=== PATIENT | male | born 1945 | race African-American/Black ===

== ENCOUNTER → 2017-03-05 | Outpatient (CLI) | payer OTHER ==
[2015-12-09 15:01] VITALS: BP 123/67
[~2017-03-05] MED LIST: ACET500T68 PO; ALLO100T PO; AMLO5TAB2 PO; ASPI-630 PO; CALC600T4 PO; COLC0.6T42 PO; FERR-36 PO; HYDR-2762 PO; LISI-334 PO; WARF3TAB54 PO
--- NOTE | 2017-03-05 13:39 | EKG ---
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
--- NOTE | 2017-03-05 14:49 | RAD ---
Indication: Right hip surgery. Technique: Two-view chest radiograph was obtained and compared to a study from November 23, 2015. Findings: The lungs are clear. There is no pleural effusion. The heart is not enlarged. There is no heart failure. 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 There are degenerative changes in the spine. 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
== END | disposition home or self-care (01) ==
LOC: SURGPAT 12:57
PROVIDERS: ATTEND Orthopaedic Surgery
DX: M16.11 Unilateral primary osteoarthritis, right hip (principal); Z96.641 Presence of right artificial hip joint
CPT/HCPCS: 71020; 87641; 93005

== ENCOUNTER → 2017-10-26 | Outpatient (CLI) | payer OTHER | END | disposition home or self-care (01) | LOC: KCIC DEXA 08:33 | DX: C61 Malignant neoplasm of prostate (principal); M81.0 Age-related osteoporosis without current pathological fracture | CPT/HCPCS: 77080 ==

== ENCOUNTER 2018-02-27 07:56 | Emergency (ER) | payer OTHER ==
[~2018-02-27] VITALS: Ht 176.5 cm; Wt 99.8 kg
[~2018-02-27 07:56] MED LIST changes: -AMLO5TAB2 PO; +AMLO5TAB7 PO; +WARF-78 PO
[2018-02-27] MEDS ORDERED: MECLIZINE HCL 12.5 MG TABLET. PO ONE (08:15)
--- NOTE | 2018-02-27 08:23 | EKG ---
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
--- NOTE | 2018-02-27 08:30 | PHYS DOC ---
Adult General Chief Complaint Chief Complaint: DIZZY/LIGHT HEADED HPI HPI Patient is a 72 year old M who presents with room spinning dizziness for the last 2 days. Patient reports his symptoms are manageable while sitting or standing. He reports when he lays down, his dizziness is unbearable. He reports dry heaves when it is at it's worst. He denies headache or chest pain. No hx of similar. Review of Systems Review of Systems Constitutional: Denies fever or chills [] Eyes: Denies change in visual acuity HENT: Denies nasal congestion or sore throat [] Respiratory: Denies cough or shortness of breath [] Cardiovascular: Denies chest pain or sob. GI: Denies abdominal pain. Reports vomiting and nausea when dizziness is at worst. Integument: Denies rash or skin lesions [] Neurologic: Denies headache, focal weakness. Reports room spinning dizziness All other systems were reviewed and found to be within normal limits, except as documented in this note. Current Medications Current Medications Current Medications Medications (Trade) Dose Ordered Sig/Kenji Start Time Stop Time Status Last Admin Dose Admin Lorazepam (Ativan) 1 mg 1X ONCE 02/27/18 08:15 02/27/18 08:24 DC 02/27/18 08:39 1 MG Meclizine HCl (Antivert) 50 mg 1X ONCE 02/27/18 08:15 02/27/18 08:24 DC 02/27/18 08:41 50 MG Allergies Allergies Allergies Coded Allergies Type Severity Reaction Last Updated Verified No Known Drug Allergies 03/27/17 No Physical Exam Physical Exam Constitutional: Well developed, well nourished, no acute distress, non-toxic appearance. [] HENT: Normocephalic, atraumatic Eyes: PERRLA, EOMI, conjunctiva normal, no discharge. [] Neck: Normal range of motion, no tenderness, supple, no stridor. [] Cardiovascular:Heart rate regular rhythm, no murmur [] Lungs & Thorax: Bilateral breath sounds clear to auscultation [] Abdomen: Bowel sounds normal, soft, no tenderness Skin: Warm, dry, no erythema, no rash. [] Neurologic: Alert and oriented X 3, normal motor function, normal sensory function, no focal deficits noted. [] Psychologic: Affect normal, judgement normal, mood normal. [] Current Patient Data Vital Signs Vital Signs Date Time Temp Pulse Resp B/P (MAP) Pulse Ox O2 Delivery O2 Flow Rate FiO2 02/27/18 08:05 98.2 87 18 156/85 (108) 97 Room Air 98.2 Lab Values Laboratory Tests Test 02/27/18 08:35 White Blood Count 9.3 x10^3/uL (4.0-11.0) Red Blood Count 5.00 x10^6/uL (4.30-5.70) Hemoglobin 13.5 g/dL (13.0-17.5) Hematocrit 40.2 % (39.0-53.0) Mean Corpuscular Volume 81 fL (79-100) Mean Corpuscular Hemoglobin 27 pg (25-35) Mean Corpuscular Hemoglobin Concent 33 g/dL (31-37) Red Cell Distribution Width 16.3 % (11.5-14.5) H Platelet Count 264 x10^3/uL (140-400) Neutrophils (%) (Auto) 76 % (31-73) H Lymphocytes (%) (Auto) 15 % (24-48) L Monocytes (%) (Auto) 8 % (0-9) Eosinophils (%) (Auto) 1 % (0-3) Basophils (%) (Auto) 1 % (0-3) Neutrophils # (Auto) 7.0 x10^3uL (1.8-7.7) Lymphocytes # (Auto) 1.4 x10^3/uL (1.0-4.8) Monocytes # (Auto) 0.7 x10^3/uL (0.0-1.1) Eosinophils # (Auto) 0.1 x10^3/uL (0.0-0.7) Basophils # (Auto) 0.1 x10^3/uL (0.0-0.2) Sodium Level 141 mmol/L (136-145) Potassium Level 4.1 mmol/L (3.5-5.1) Chloride Level 103 mmol/L (98-107) Carbon Dioxide Level 25 mmol/L (21-32) Anion Gap 13 (6-14) Blood Urea Nitrogen 20 mg/dL (8-26) Creatinine 1.4 mg/dL (0.7-1.3) H Estimated GFR (Cockcroft-Gault) 60.1 BUN/Creatinine Ratio 14 (6-20) Glucose Level 133 mg/dL (70-99) H Calcium Level 9.9 mg/dL (8.5-10.1) Total Bilirubin 0.3 mg/dL (0.2-1.0) Aspartate Amino Transferase (AST) 13 U/L (15-37) L Alanine Aminotransferase (ALT) 19 U/L (16-63) Alkaline Phosphatase 75 U/L (46-116) Troponin I Quantitative < 0.017 ng/mL (0.000-0.055) Total Protein 8.2 g/dL (6.4-8.2) Albumin 4.0 g/dL (3.4-5.0) Albumin/Globulin Ratio 1.0 (1.0-1.7) Laboratory Tests 02/27/18 08:35 Laboratory Tests 02/27/18 08:35 EKG EKG NSR, rate 86, left axis, no stemi[] Radiology/Procedures Radiology/Procedures PATIENT: ANDRES PADILLA EACCOUNT: [id number]#: [id number] : 1945 LOCATION: ER AGE: 72 SEX: M EXAM STATUS: REG ER ORD. PHYSICIAN: JHONY FERRERA APRN REASON: dizziness PROCEDURE: CT HEAD WO CONTRAST PQRS Compliance Statement: One or more of the following individualized dose reduction techniques were utilized for this examination: 1. Automated exposure control 2. Adjustment of the mA and/or kV according to patient size 3. Use of iterative reconstruction technique CT HEAD WITHOUT CONTRAST History: DIZZY Comparison: None. Technique: Axial images are obtained of the head from the skull base through the vertex without IV contrast. Findings: No mass-effect, midline shift, extra-axial fluid collection, hemorrhage, or obvious acute infarction is identified. Basilar cisterns are patent. The ventricles and sulci are prominent, consistent with age-related cerebral atrophy. There is periventricular and subcortical white matter hypoattenuation. This is a nonspecific finding but is commonly due to chronic small vessel ischemic disease. Bone windows demonstrate no acute calvarial abnormality. The visualized paranasal sinuses are clear. Mastoid air cells are well aerated. IMPRESSION: 1. No acute intracranial abnormality. 2. Age-related cerebral atrophy and periventricular and subcortical white matter changes of chronic small vessel ischemic disease. Electronically signed by: John Ramirez MD (02/27/2018 8:58 AM) [id number] DICTATED and SIGNED BY: JOHN RAMIREZ MD DATE: 02/27/18 0855 [] Course & Med Decision Making Course & Med Decision Making Pertinent Labs and Imaging studies reviewed. (See chart for details) Patient is feeling much better after meds. He reports he was able to lay down for CT without dizziness. Plan: meclizine rx, valium rx, f/u with PCP, return precautions reviewed[] Dragon Disclaimer Dragon Disclaimer This electronic medical record was generated, in whole or in part, using a voice recognition dictation system. Departure Departure Impression: Primary Impression: Vertigo Disposition: 01 HOME, SELF-CARE Condition: IMPROVED Referrals: HARDY CEVALLOS MD (PCP) Patient Instructions: Vertigo Scripts Meclizine Hcl (MECLIZINE HCL) 25 Mg Tablet 1 TAB PO TID, #90 TAB po tid x3 days, then tid prn dizziness Prov: JHONY FERRERA ARMHOLE RAISER LOCKSTITCH 02/27/18 Diazepam (VALIUM) 2 Mg Tablet 2 MG PO QID PRN for breakthrough dizziness, #12 TAB Prov: JHONY FERRERA ARMHOLE RAISER LOCKSTITCH 02/27/18 JHONY FERRERA APRN Feb 27, 2018 08:30
--- NOTE | 2018-02-27 09:01 | RAD ---
PQRS Compliance Statement: One or more of the following individualized dose reduction techniques were utilized for this examination: 1. Automated exposure control 2. Adjustment of the mA and/or kV according to patient size 3. Use of iterative reconstruction technique CT HEAD WITHOUT CONTRAST History: DIZZY Comparison: None. Technique: Axial images are obtained of the head from the skull base through the vertex without IV contrast. Findings: No mass-effect, midline shift, extra-axial fluid collection, hemorrhage, or obvious acute infarction is identified. Basilar cisterns are patent. The ventricles and sulci are prominent, consistent with age-related cerebral atrophy. There is periventricular and subcortical white matter hypoattenuation. This is a nonspecific finding but is commonly due to chronic small vessel ischemic disease. Bone windows demonstrate no acute calvarial abnormality. The visualized paranasal sinuses are clear. Mastoid air cells are well aerated. IMPRESSION: 1. No acute intracranial abnormality. 2. Age-related cerebral atrophy and periventricular and subcortical white matter changes of chronic small vessel ischemic disease. Electronically signed by: John Ramirez MD (02/27/2018 8:58 AM) [id number]
[2018-02-27 09:06] LABS: BASO # 0.1 x10^3/uL (0.0-0.2); BASO % 1 % (0-3); EOS # 0.1 x10^3/uL (0.0-0.7); EOS % 1 % (0-3); HEMATOCRIT 40.2 % (39.0-53.0); HEMOGLOBIN 13.5 g/dL (13.0-17.5); LYMPH # 1.4 x10^3/uL (1.0-4.8); LYMPH % 15 % (24-48); MEAN CORPUSCULAR HEMOGLOBIN 27 pg (25-35); MEAN CORPUSCULAR HGB CONC 33 g/dL (31-37); MEAN CORPUSCULAR VOLUME 81 fL (79-100); MONO # 0.7 x10^3/uL (0.0-1.1); MONO % 8 % (0-9); NEUT % 76 % (31-73); PLATELET COUNT 264 x10^3/uL (140-400); RED CELL DISTRIBUTION WIDTH 16.3 % (11.5-14.5); WHITE BLOOD COUNT 9.3 x10^3/uL (4.0-11.0)
[2018-02-27 09:21] LABS: CALCIUM 9.9 mg/dL (8.5-10.1); CREATININE 1.4 mg/dL (0.7-1.3); GFR 60.1; POTASSIUM 4.1 mmol/L (3.5-5.1)
[2018-02-27 09:24] LABS: TOTAL BILIRUBIN 0.3 mg/dL (0.2-1.0); TOTAL PROTEIN 8.2 g/dL (6.4-8.2)
[2018-02-27] MEDS ORDERED: DIAZ2TAB PO (09:52)
[2018-02-27] MEDS ORDERED: MECL25TA3 PO (09:56)
[2018-02-27 10:00] VITALS: BP 147/88
== END 2018-02-27 10:30 | disposition home or self-care (01) ==
LOC: ER 07:56
DX: R42 Dizziness and giddiness (principal); R11.2 Nausea with vomiting, unspecified
CPT/HCPCS: 36415; 70450; 80053; 84484; 85025; 93005; 96374; 99285; J2060; J8597

== ENCOUNTER 2019-03-21 17:10 | Emergency (ER) | payer OTHER ==
[~2019-03-21] VITALS: Ht 175.3 cm; Wt 99.8 kg
[~2019-03-21 17:10] MED LIST changes: +AMLO5TAB10 PO; -AMLO5TAB7 PO; +DIAZ2TAB PO; -HYDR-2762 PO; +HYDR-2765 PO; +MECL25TA3 PO
[2019-03-21 17:15] VITALS: BP 200/96
--- NOTE | 2019-03-21 17:27 | PHYS DOC ---
Past Medical History Past Medical History: Hypertension, Other Additional Past Medical Histor: prostate ca Past Surgical History: Hip Replacement, Knee Replacement Additional Past Surgical Histo: R hip/knee, prostate removed, lumbar surgery Alcohol Use: Occasionally Drug Use: None Adult General Chief Complaint Chief Complaint: URINARY RETENTION [facility] HPI Patient is a 73 year old male who presents with urinary retention this been ongoing for 3 hours. The patient rates his pain as 10 out of 10 in severity. He states that he was just dribbling a little bit out of the time. He states he was having some bleeding earlier today. Patient has a history of prostate cancer. Review of Systems Review of Systems Constitutional: Denies fever or chills [] Eyes: Denies change in visual acuity, redness, or eye pain [] HENT: Denies nasal congestion or sore throat [] Respiratory: Denies cough or shortness of breath [] Cardiovascular: No additional information not addressed in HPI [] GI: Reports abdominal pain near his bladder Denies nausea, vomiting, bloody stools or diarrhea [] : Reports retention and blood. Musculoskeletal: Denies back pain or joint pain [] Integument: Denies rash or skin lesions [] Neurologic: Denies headache, focal weakness or sensory changes [] Endocrine: Denies polyuria or polydipsia [] Complete systems were reviewed and found to be within normal limits, except as documented in this note. Allergies Allergies Allergies Coded Allergies Type Severity Reaction Last Updated Verified No Known Drug Allergies 03/27/17 No Physical Exam Physical Exam Constitutional: Well developed, well nourished, no acute distress, non-toxic appearance. [] HENT: Normocephalic, atraumatic, bilateral external ears normal, oropharynx moist, no oral exudates, nose normal. [] Eyes: PERRLA, EOMI, conjunctiva normal, no discharge. [] Neck: Normal range of motion, no tenderness, supple, no stridor. [] Cardiovascular:Heart rate regular rhythm, no murmur [] Lungs & Thorax: Bilateral breath sounds clear to auscultation [] Abdomen: Bowel sounds normal, soft, distended bladder, no masses, no pulsatile masses. [] Skin: Warm, dry, no erythema, no rash. [] Back: No tenderness, no CVA tenderness. [] Extremities: No tenderness, no cyanosis, no clubbing, ROM intact, no edema. [] Neurologic: Alert and oriented X 3, normal motor function, normal sensory function, no focal deficits noted. [] Psychologic: Affect normal, judgement normal, mood normal. [] Current Patient Data Vital Signs Vital Signs Date Time Temp Pulse Resp B/P (MAP) Pulse Ox O2 Delivery O2 Flow Rate FiO2 03/21/19 17:15 98.1 82 20 200/96 (130) 97 Room Air 98.1 Lab Values Laboratory Tests Test 03/21/19 17:15 Urine Collection Type U cath Urine Color Brittney Urine Clarity Cloudy Urine pH 5.0 Urine Specific [place] 1.010 Urine Protein 100 mg/dL (NEG-TRACE) Urine Glucose (UA) Negative mg/dL (NEG) Urine Ketones (Stick) Trace mg/dL (NEG) Urine Blood Large (NEG) Urine Nitrite Negative (NEG) Urine Bilirubin Negative (NEG) Urine Urobilinogen Dipstick 0.2 mg/dL (0.2 mg/dL) Urine Leukocyte Esterase Small (NEG) Urine RBC Tntc /HPF (0-2) Urine WBC 5-10 /HPF (0-4) Urine Squamous Epithelial Cells Few /LPF Urine Bacteria 0 /HPF (0-FEW) Urine Mucus Slight /LPF EKG EKG [] Radiology/Procedures Radiology/Procedures [] Course & Med Decision Making Course & Med Decision Making Pertinent Labs and Imaging studies reviewed. (See chart for details) Bladder scan showed [address] reich and send home with leg bag. [facility]. UA shows leukocytes. Will place on Keflex 500 mg QID x 7 days. Dragon Disclaimer Dragon Disclaimer This electronic medical record was generated, in whole or in part, using a voice recognition dictation system. Departure Departure Impression: Primary Impression: Urinary retention Additional Impression: Urinary tract infection Disposition: HOME, SELF-CARE Condition: STABLE Referrals: HARDY CEVALLOS MD (PCP) Patient Instructions: Urinary Retention, Acute, Male, Urinary Tract Infection Additional Instructions: Thank you for visiting [facility]. We appreciate you trusting us with your care. If any additional problems come up don't hesitate to return to visit us. Please follow up with your primary care provider so they can plan additional care if needed and know about the problem that you had. If symptoms worsen come back to the Emergency Department. Any concerning symptoms that start such as chest pain, shortness of air, weakness or numbness on one side of the body, running high fevers or any other concerning symptoms return to the ER. Please follow up with urologist beginning next week. Scripts Cephalexin (KEFLEX) 500 Mg Capsule 1 CAP PO QID for 7 Days, #28 CAP 0 Refills Prov: MK HERBERT APRN 03/21/19 Problem Qualifiers Additional Impression: Urinary tract infection Urinary tract infection type: acute cystitis Hematuria presence: with hematuria Qualified Codes: N30.01 - Acute cystitis with hematuria MK HERBERT APRN Mar 21, 2019 17:27
[2019-03-21 17:35] LABS: BILIRUBIN,URINE NEGATIVE (NEG); NITRITE,URINE NEGATIVE (NEG); PROTEIN,URINE 100 mg/dL (NEG-TRACE); UROBILINOGEN,URINE 0.2 mg/dL (0.2 mg/dL)
[2019-03-21 17:40] LABS: CLARITY,URINE CLOUDY; COLOR,URINE AMBER
[2019-03-21 17:44] LABS: BACTERIA,URINE 0 /HPF (0-FEW); RBC,URINE TNTC /HPF (0-2); SQUAMOUS EPITHELIAL CELL,UR FEW /LPF
[2019-03-21] MEDS ORDERED: CEPH-264 PO (17:59)
== END 2019-03-21 18:14 | disposition home or self-care (01) ==
LOC: ER 17:10
DX: N30.01 Acute cystitis with hematuria (principal); R33.9 Retention of urine, unspecified; I10 Essential (primary) hypertension
CPT/HCPCS: 51702; 81001; 87086; 99285-25

== ENCOUNTER → 2020-09-28 | Outpatient (CLI) | payer MEDICARE ==
[~2020-09-28] MED LIST changes: +AMLO-186 PO; -AMLO5TAB10 PO; -CALC600T4 PO; +CALC600T60 PO; +CEPH-264 PO; -COLC0.6T42 PO; +COLC0.6T45 PO; -LISI-334 PO; +LISI20TA18 PO; +MECL-75 PO; -MECL25TA3 PO; -WARF-78 PO; +WARF5TAB2 PO
--- NOTE | 2020-09-28 11:54 | RAD ---
DATE: September 28, 2020 EXAM: DIGITAL DIAGNOSTIC BILATERAL, BREAST BILATERAL HISTORY: Lump of the left breast found by patient's physician. History of gynecomastia. Previous ultrasound report in 2016 provided history of prostate cancer as well. COMPARISON: No previous mammograms available. Left breast sonogram September 24, 2015. This study was interpreted with the benefit of Computerized Aided Detection (CAD). FINDINGS: Breast Density: HETERO The breast parenchyma is heterogenously dense, which could reduce sensitivity of mammography. Breast parenchyma level C.. There are no dominant suspicious masses, suspicious microcalcifications or evidence of architectural distortion. A skin marker was placed on the medial aspect of the the left breast to rachel the palpable lump as indicated by the patient. No underlying mammographic abnormality seen here. The left breast is overall larger than the right breast. BILATERAL BREAST SONOGRAPHY Left breast: High-resolution sonography of the palpable lump of the 9:30 position of the left breast 3 cm from nipple was performed. An irregular hypoechoic nodule is seen which is taller than wide. It measures 10 mm in AP dimension and 7 mm and 10 mm in transverse dimension. The borders are irregular. There is color flow along the edge. Sonography of the retroareolar region of the left breast demonstrates gynecomastia. Right breast: High-resolution sonography of the retroareolar region of the right breast was performed which demonstrates gynecomastia. Sonography of both axilla was performed and no abnormal lymph nodes are seen. IMPRESSION: Palpable lump of the 9:30 position of the left breast corresponds to a solid irregular nodule by sonography. Therefore, recommend ultrasound-guided core biopsy of this nodule. Bilateral gynecomastia. The left breast is larger than the right breast. Note-I discussed the findings and recommendation for biopsy of the left breast with the patient after completion of the study on September 28, 2020. In addition, I called this result and recommendation for biopsy to the office of the patient's physician at 11:40 AM on September 28, 2020. BI-RADS CATEGORY: 5 HIGHLY SUGGESTIVE MALIGNANCY RECOMMENDED FOLLOW-UP: BIO BIOPSY RECOMMENDED PQRS compliance statement: Patient information was entered into a reminder system with a target due date September 29, 2021 for the next mammogram. Mammography is a sensitive method for finding small breast cancers, but it does not detect them all and is not a substitute for careful clinical examination. A negative mammogram does not negate a clinically suspicious finding and should not result in delay in biopsying a clinically suspicious abnormality. "Our facility is accredited by the [employer] Mammography Program." The patient's breast density may affect the ability of mammography to detect breast cancer. There are 4 categories of breast density, A, B, C and D. Breast density A means that most of the breast tissue is replaced with adipose tissue and therefore is not dense. Breast density B means that the breast tissue is mildly dense and scattered. Breast density C means that the breast tissue is heterogeneously dense. Breast density D means that the breast tissue is very dense. Breast densities especially C and D may decrease the sensitivity of mammography to detect breast cancer. Therefore, the patient may benefit from 3-D breast mammography (3D breast tomography) as a part of their screening mammogram. Insurance may or may not pay for this additional imaging. The patient's breast density based on today's mammogram is category C.
== END ==
LOC: MAMMO 10:38
PROVIDERS: ATTEND Specialist
DX: N63.22 Unspecified lump in the left breast, upper inner quadrant (principal); N62 Hypertrophy of breast
CPT/HCPCS: 77066; 76641-50

== ENCOUNTER → 2020-10-20 | Day surgery (SDC) | payer MEDICARE ==
[~2020-10-20] VITALS: Ht 176.5 cm; Wt 220.0 kg
[~2020-10-20] MED LIST changes: +BICA50TA47 PO; +HYDROmorphone 2 MG/ML VIAL IVP PRN; +IV RINGERS,LACTATED 1000ML 1,000 ML IV SCH; +LEUP7.5S IM; +METHYLENE BLUE 0.5% 10ml AMPULE. ONE; +MORPHINE SULFATE 2 MG/ML VIAL. IVP PRN; +PROCHLORPERAZINE 10 MG/2 ML VIAL. IVP PRN; +fentaNYL PF VIAL 100 MCG/2 ML VIAL IVP PRN
[2020-10-20 07:36] VITALS: BP 146/78
[2020-10-20 07:48] LABS: BASO % 0 % (0-3); EOS # 0.3 x10^3/uL (0.0-0.7); EOS % 3 % (0-3); HEMATOCRIT 37.1 % (39.0-53.0); HEMOGLOBIN 12.4 g/dL (13.0-17.5); LYMPH # 2.2 x10^3/uL (1.0-4.8); LYMPH % 24 % (24-48); MEAN CORPUSCULAR HEMOGLOBIN 27 pg (25-35); MEAN CORPUSCULAR HGB CONC 33 g/dL (31-37); MEAN CORPUSCULAR VOLUME 80 fL (79-100); MONO # 0.9 x10^3/uL (0.0-1.1); MONO % 10 % (0-9); NEUT # 5.8 x10^3/uL (1.8-7.7); NEUT % 63 % (31-73); PLATELET COUNT 253 x10^3/uL (140-400); RED BLOOD COUNT 4.64 x10^6/uL (4.30-5.70); RED CELL DISTRIBUTION WIDTH 15.6 % (11.5-14.5); WHITE BLOOD COUNT 9.2 x10^3/uL (4.0-11.0)
[2020-10-20 07:55] LABS: CALCIUM 9.5 mg/dL (8.5-10.1); CREATININE 1.4 mg/dL (0.7-1.3); GFR 59.6; POTASSIUM 3.9 mmol/L (3.5-5.1)
[2020-10-20 08:00] LABS: PROTHROMBIN TIME PATIENT 12.7 SEC (11.7-14.0)
[2020-10-20 08:02] LABS: TOTAL BILIRUBIN 0.4 mg/dL (0.2-1.0); TOTAL PROTEIN 8.1 g/dL (6.4-8.2)
--- NOTE | 2020-10-20 09:25 | HP ---
ADMIT DATE: 10/20/2020 HISTORY OF PRESENT ILLNESS: The patient is referred to me by Dr. Beal, because of a painful mass in the left breast, apparently it has been there for a year or two and increased in size, he thinks since he has been taking some medicines. He does have a history of prostate cancer, takes medicines for that and does take antihypertensive medication. Mass is enlarging and therefore, he is referred to me. PAST MEDICAL HISTORY: Shows normal childhood diseases. No heart disease or diabetes, but he does take medication for hypertension. He also has had prostate cancer many years ago, had a prostatectomy and has taken prostate medicine for the prostate cancer now. The patient has also had a right knee replacement, left hip replacement and back surgery. It should be noted that he does have gout and takes allopurinol for that. ALLERGIES: He has no allergies to his knowledge. SOCIAL HISTORY: Shows that he does not drink, smoke or use illicit drugs. REVIEW OF SYSTEMS: Relative to the breast where he has some pain and tenderness in the left breast which is enlarging in size. Otherwise, he has just general arthritic pain. FAMILY HISTORY: Noncontributory. PHYSICAL EXAMINATION: GENERAL: Shows an alert male in no acute distress. HEAD, EYES, EARS, NOSE AND THROAT: Grossly normal. LUNGS: Clear bilaterally to auscultation. HEART: Had no heaves, rubs, or thrills, but did have about a 2/6 systolic murmur heard at the aortic area mostly. This was fairly faint, but present. ABDOMEN: Still with a scar of previous surgery, but no other abnormalities. BREASTS: Examination of the breasts showed that the left was obviously bigger than the right and you could feel some breast tissue beneath that which was minimally tender. On the right, there was minimal breast tissue present, but it was firm. The left one is the only one that ____ was negative. IMPRESSION: 1. Gout. 2. Hypertension. 3. Prostate cancer. 4. Arthritic disease of the back, right hip and right knee. 5. Gynecomastia. PLAN: Would be to get a mammogram, see the patient back and then discuss the options of surgery. PERRY/ALMA/CHERYL DR: Geoffrey TID: [id number]
[2020-10-20 12:30] VITALS: BP 134/81
--- NOTE | 2020-10-21 00:15 | OP ---
DATE OF SURGERY: 10/20/2020 SURGEON: Thuan Lucero MD PREOPERATIVE DIAGNOSIS: Mass of the left breast. POSTOPERATIVE DIAGNOSES: Mass of the left breast plus gynecomastia. ANESTHESIA: General. PROCEDURE: Excision of mass, left breast via needle localization. TECHNIQUE: Under general anesthesia, the patient was properly prepped and draped in a routine fashion. A wire was placed just to the left, about 3 inches above the nipple on the patient's left and it went medially and inferiorly. As such, we made a transverse incision above the areola, below the needle and carried this down through the skin about an inch and a half or 2 inches using a 15-blade. We got into the subQ and then raising up to the more cephalad areas with Chad retractors. We dissected over to the guidewire. Delivered the guidewire into the wound and then proceeded to grasp the guidewire and the tissue around it. We pulled this out, retracting the edges away and then used cautery to go around the guidewire, down. The guidewire did not enter the lesion, it was distal to it. No methylene blue had been placed. We therefore pulled up the tissue around it, went around the wire and slowly went around into the breast tissue, going about a 0.5 cm to a 1 cm wider than thought necessary to include the complete mass. The mass could not be palpated. We did remove all the tissue around the guidewire and distal to the guidewire, so that we will make certain that we would get the lesion. Having done this, we sent it to Radiology and the radiologist per her conversation with me stated that the lesion was in the specimen. As such, we proceeded to inspect the wound. There was no bleeding and 3-0 Vicryl was used to interruptedly close the deeper structures and breast tissue. The subcutaneous and more superficial tissues were approximated using the 4-0 Vicryl. The skin was closed using a 5-0 subcuticular Vicryl. The procedure was now terminated as sterile dressing was applied. The blood loss was probably 5-10 mL. Fluids given can be obtained from the anesthesia sheet. No drains were used and the condition of the patient is satisfactory as he has returned to the recovery room. PERRY/CALEB DR: Geoffrey TID: [id number]
--- NOTE | 2020-10-21 17:10 | PATHOLOGY ---
[facility] Accession Number: [id number] . 01 Material submitted: . breast - LEFT BREAST MASS. Modifiers: left . 01 Clinical history: . LEFT BREAST BENIGN EXCISION MASS LEFT BREAST . 02 Diagnosis: Segments of breast tissue, left breast mass excision: - Gynecomastia. . ([facility]:mm; 10/21/2020) [facility] 10/21/2020 1545 Local . 02 Comment: There is no evidence of malignancy. . ([facility]:mm; 10/21/2020) . 02 Electronically signed: . Jarvis Rushing MD, Pathologist NPI- [id number] . 01 Gross description: . Fixative: formalin Labeled: Left breast mass Specimen received as 2 intact lumpectomies with guidewire in situ in the larger Oriented: No orientation provided Dimensions: 2 x 1.7 x 1 cm and 5 x 4.5 x 1 cm Weight: 2 and 16 gms . The specimen is inked as follows: Each fragment is inked black The smaller is remarkable only for firm castaneda-white areas and is entirely sequentially submitted A1-A3. . The larger is composed of 75% castaneda-white fibrous tissue. An obvious lesion or biopsy site is not identified. The larger is entirely sequentially submitted A4-A15. . Biopsy clip: None Uninvolved breast parenchyma: fibrofatty . . The specimen is removed from the patient at 1105 hours and placed in formalin at 1120 hours on Sunday, October 20, 2020. The specimen is removed from formalin at 11:30pm on October. The specimen is in formalin for greater than 6 hours and less than 72 hours. ([facility]; 10/20/2020) . DANIEL/DANIEL 10/20/2020 [place] Local . 02 Pathologist provided ICD-10: N62 . 02 CPT . 051618 Specimen Comment: A courtesy copy of this report has been sent to [phone], [phone] Specimen Comment: [id number] Specimen Comment: Report sent to / DR CEVALLOS Performed at: 01 [facility] [address] [place] [address] [address], [place], [place] [id number] MD Jerzy Arita MD Phone: [phone] Performed at: 02 [facility] [address] [place], [place] [id number] MD Jarvis Rushing MD Phone: [phone]
== END | disposition home or self-care (01) ==
LOC: SURG 07:04
PROVIDERS: ATTEND Specialist
DX: N63.20 Unspecified lump in the left breast, unspecified quadrant (principal); R92.8 Other abnormal and inconclusive findings on diagnostic imaging of breast; I10 Essential (primary) hypertension; M19.90 Unspecified osteoarthritis, unspecified site; M10.9 Gout, unspecified; Z87.891 Personal history of nicotine dependence; Z79.82 Long term (current) use of aspirin; Z79.899 Other long term (current) drug therapy; Z98.890 Other specified postprocedural states; Z72.89 Other problems related to lifestyle; Z83.3 Family history of diabetes mellitus
CPT/HCPCS: 19120; 36415; 80053; 85025; 85610; 88305; A4930; A6258; Q9968

== ENCOUNTER → 2020-10-20 | Outpatient (CLI) | payer MEDICARE ==
[~2020-10-20] VITALS: Ht 176.5 cm; Wt 99.8 kg
[~2020-10-20] MED LIST changes: -HYDROmorphone 2 MG/ML VIAL IVP PRN; -IV RINGERS,LACTATED 1000ML 1,000 ML IV SCH; +LIDOCAINE 2% PF 5 ML VIAL. ONE; -METHYLENE BLUE 0.5% 10ml AMPULE. ONE; -MORPHINE SULFATE 2 MG/ML VIAL. IVP PRN; +ONDANSETRON PF 4 MG/2 ML VIAL. ONE; -PROCHLORPERAZINE 10 MG/2 ML VIAL. IVP PRN; +PROPOFOL 10 MG/ML (20ML) VIAL. IV ONE; +ROCURONIUM 50 MG/5 ML VIAL. ONE; +SEVOFLURANE 31 TO 60 MINUTES. IH ONE; +ceFAZolin SODIUM IV Push 1 GM VIAL. IVP PRN; +ePHEDrine PF IN SALINE 50 MG/10 ML SYRINGE. IV ONE; -fentaNYL PF VIAL 100 MCG/2 ML VIAL IVP PRN; +fentaNYL PF VIAL 100 MCG/2 ML VIAL ONE
[2020-10-20 07:37] VITALS: BP 146/78
--- NOTE | 2020-10-20 10:09 | RAD ---
EXAM: US NDL LOC WIRE BREAST, MG DIAGNOSTICUNILAT MAMMO 10/20/2020 8:00 AM INDICATION: Left breast mass COMPARISON: Left breast ultrasound 09/28/2020. Diagnostic left breast mammogram 09/28/2020 TECHNIQUE/FINDINGS: The purpose of the procedure, risks and benefits, and alternatives were explained to the patient. Inf ormed consent was obtained. A timeout was performed. The patient was placed supine on the ultrasound table. The mass at 9:30, 3 cm from the nipple in the left breast was identified and overlying skin marked, prepped, draped in standard sterile fashion. Sk in was anesthetized with 1 percent lidocaine. Next, a wire localization needle was advanced into the mass under continuous ultrasound guidance. The tip of the wire was at the distal edge of the mass. Th e distance from the skin entrance to the tip of the wire is approximately 3 cm. The wire was secured to the skin with a dressing. Post wire placement mammogram demonstrates appropriate of the wire in th e left breast. IMPRESSION:Technically successful ultrasound-guided wire localization of left breast mass at 9:30, 3 cm from the nipple. Electronically signed by: Cassia Valentine MD (10/20/2020 10:06 AM) [id number]
--- NOTE | 2020-10-20 10:29 | PDOC ---
SURGICAL PROGRESS NOTE DATE: 10/20/20 TIME: 10:27 No change in dictated h&P Justicifation of Admission Dx: Justifications for Admission: Justification of Admission Dx: Yes KALLIE AMOR MD Oct 20, 2020 10:28
--- NOTE | 2020-10-20 11:53 | PDOC ---
SURGICAL PROGRESS NOTE DATE: 10/20/20 TIME: 11:49 Op Note: Surgeon...........................................Nic Pre op diag.......................................mass left breast Post op0 diag..................................same Aneshtesia......................................general Procedure.......................................excisin mass left breast via needle localization Drains...........................................none Bl;ood loss.....................................10cc Fluids...........................................see anesth sheet condition......................................satisfactory Justicifation of Admission Dx: Justifications for Admission: Justification of Admission Dx: Yes KALLIE AMOR MD Oct 20, 2020 11:52
--- NOTE | 2020-10-20 12:01 | DISCH ---
DISCHARGE INSTRUCTIONS Condition on Discharge Condition on Discharge: Stable Activity After Discharge Activity Instructions for Disc: Activity as tolerated, Avoid exertion, Prog ressive ambulation Bathing Instructions: No Tub Bath until see Lifting Instructions after Dis: No heavy lifting, No pulling or pushing, Do not lift >10 pounds Exercise Instruction after Dis: Exercise per therapy, Progress as tolerated Driving Instructions after Dis: Do not drive, Do not drive today Weight Bearing Status after Di: Full weight bearing, As tolerated Diet after Discharge Diet after Discharge: Regular Additional Diet Restrictions: as pre op..clear liquids till not nauseated Diet Texture: Regular Wound Incision Care Wound/Incision Care: Ice to area for comfort, Keep wound/cast CDI, Keep wound elevated, Change dressing Other wound/incision instructi: keep dry and clean Follow-Up Follow up with: call and make appt to see dr. Mcfadden in 6 days. Treatment/Equipment after DC Adaptive Equipment Issued: KALLIE Rick MD Oct 20, 2020 12:01
--- NOTE | 2020-10-20 12:23 | RAD ---
EXAM: MG DIGITAL BILAT DIAGNOSTIC MAMMO WITH BRIGHT 10/20/2020 11:05 AM CLINICAL INDICATION: Post excisional biopsy COMPARISON: Left breast mass wire localization and post wire localization mammogram 10/20/2020. TECHNIQUE: Mammogram of the surgical specimen was obtained. FINDINGS: The entire wire is contained within the specimen. The surgical specimen measures approxima tely 7.0 x 7.0 cm. There is at least 4 cm of tissue distal to the wire. The wire is near one edge of the specimen with 0.8 cm of tissue on one set of the wire and 6.5 cm of tissue on the other side of t he wire. There is soft tissue density around the tip of the wire of the likely correlates with the ma ss, however the discrete margins of the mass are not well visualized. IMPRESSION: Surgical specimen containing the entire wire. The specimen appears to contain the mass, however it is difficult to determine discrete margins of the irregular mass. The wire is noted to be one edge of the specimen, as described. Electronically signed by: aCssia Valentine MD (10/20/2020 12:20 PM) [id number]
== END | disposition home or self-care (01) ==
LOC: SURG 09:51
PROVIDERS: ATTEND Specialist
DX: N63.22 Unspecified lump in the left breast, upper inner quadrant (principal); R92.8 Other abnormal and inconclusive findings on diagnostic imaging of breast; I10 Essential (primary) hypertension; M19.90 Unspecified osteoarthritis, unspecified site; M10.9 Gout, unspecified; Z87.891 Personal history of nicotine dependence; Z79.82 Long term (current) use of aspirin; Z79.899 Other long term (current) drug therapy; Z98.890 Other specified postprocedural states; Z72.89 Other problems related to lifestyle
CPT/HCPCS: 19285; 76098; 77065; C1819; J0690; J2405; J2704; J3010

== ENCOUNTER → 2021-10-04 | Outpatient (CLI) | payer MEDICARE ==
[2020-10-20 07:37] VITALS: BP 146/78
[~2021-10-04] MED LIST changes: +IOHEXOL 240 MG/ML 50ML VIAL. PO ONE; +IOHEXOL 300 MG/ML 100ML VIAL. IV ONE; -LIDOCAINE 2% PF 5 ML VIAL. ONE; -ONDANSETRON PF 4 MG/2 ML VIAL. ONE; -PROPOFOL 10 MG/ML (20ML) VIAL. IV ONE; -ROCURONIUM 50 MG/5 ML VIAL. ONE; -SEVOFLURANE 31 TO 60 MINUTES. IH ONE; -ceFAZolin SODIUM IV Push 1 GM VIAL. IVP PRN; -ePHEDrine PF IN SALINE 50 MG/10 ML SYRINGE. IV ONE; -fentaNYL PF VIAL 100 MCG/2 ML VIAL ONE
--- NOTE | 2021-10-04 16:34 | KCIC ---
CT ABDOMEN+PELVIS W History: Generalized abdominal pain. History of bladder infection, prostate cancer status post surger y, constipation. Comparison: Chest x-ray 11/23/2015 Technique: CT of the abdomen and pelvis with oral and intravenous contrast. Findings: CT senior sales director image demonstrates tortuous uncoiled aortic arch. Descending aortic aneurysm measuring 5.3 cm diameter. No periaortic inflammatory changes. Lung bases are clear. Subcentimeter hypodensity in the right hepatic lobe, nonspecific, too small to completely characteriz e. Mild intrahepatic biliary ductal dilatation. The common bile duct measures 11 mm diameter. Unremar kable gallbladder. The with pancreatic duct measures approximately 5 mm at the body. The spleen, and adrenal glands are unremarkable. 9 mm left renal cyst. No hydronephrosis or nephrolithiasis. The stomach and small bowel are within normal limits. There is extensive colonic diverticulosis witho ut wall thickening to suggest diverticulitis. The bladder is unremarkable. Postsurgical changes from prostatectomy. Bilateral pelvic sidewall lymph node dissection. No abdominal pelvic adenopathy identi fied. 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 Moderate atherosclerosis. Bilateral fa t-containing inguinal hernias. Soft tissues are unremarkable. Right hip arthroplasty. Multilevel dege nerative changes of lower thoracic and lumbar spine. Impression: 1. Partially visualized thoracic aortic aneurysm measuring 5.[address] angiogram of the tho racic aorta and vascular surgery consultation. 2. Intrahepatic biliary duct dilatation, common bile duct dilatation and dilation of the proximal pa ncreatic duct. Findings concerning for possible obstruction of the distal common bile duct or ampulla . Recommend MRI pancreas/MRCP versus ERCP for further evaluation. Correlate for laboratory evidence o f biliary obstruction. 3. Extensive colonic diverticulosis without evidence of diverticulitis. Findings discussed with the patient by telephone call at 10/04/2021 4:26 PM. Additionally, a voicemail notification was left with Leslie in Dr. Beal's office. FOR INTERNAL CODING PURPOSES RESULT CODE: (C) ------ Exposure: One or more of the following individualized dose reduction techniques were utilized for thi s examination: 1. Automated exposure control 2. Adjustment of the mA and/or kV according to patient size 3. Use of iterative reconstruction technique. Electronically signed by: Rex Rosas MD (10/04/2021 4:32 PM) [id number]
== END ==
LOC: KCIC CT 08:51
PROVIDERS: ATTEND Internal Medicine
DX: I71.4 Abdominal aortic aneurysm, without rupture (principal); K57.30 Diverticulosis of large intestine without perforation or abscess without bleeding; I70.90 Unspecified atherosclerosis; M47.815 Spondylosis without myelopathy or radiculopathy, thoracolumbar region; K83.8 Other specified diseases of biliary tract; Z96.641 Presence of right artificial hip joint; Z90.79 Acquired absence of other genital organ(s)
CPT/HCPCS: 74177; 82565; Q9966; Q9967